=== PATIENT | female | born 2000 | race Hispanic/Latino ===

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

== ENCOUNTER 2024-04-19 22:36 | Emergency (ER) | payer OTHER ==
[~2024-04-19] VITALS: Ht 152.4 cm; Wt 80.3 kg
[2024-04-19 22:59] VITALS: PULSE 97; RESP 19; TEMP 98; O2SAT 100
[2024-04-19] MEDS: TETANUS/DIPHTHERIA TOX ADULT 0.5 ML SYR IM ONE (23:45)
[2024-04-19] MEDS ORDERED: TRUVADA 200 MG1 EACH PO (23:48)
[2024-04-19] MEDS ORDERED: ISENTRESS400 MG PO (23:48)
== END 2024-04-19 23:57 | disposition home or self-care (01) ==
LOC: ER 22:41
DX: S79.922A Unspecified injury of left thigh, initial encounter (principal); W46.0XXA Contact with hypodermic needle, initial encounter; Y99.0 Civilian activity done for income or pay
CPT/HCPCS: 90471; 90714; 99282